=== PATIENT | male | born 1990 | race Two or more races ===

== ENCOUNTER 2025-03-13 19:59 | Emergency (ER) | payer OTHER ==
[~2025-03-13] VITALS: Ht 185.4 cm; Wt 90.7 kg
[2025-03-13] MEDS ORDERED: ASPIRIN 325 MG TABLET.EC PO ONE (21:25)
[2025-03-13 21:30] LABS: BASO % 0.4 % (0.1-1.2); EOS # 0.23 (0.04-0.54); EOS % 2.9 % (0.7-7.0); LYMPH # 2.14 (1.18-3.74); LYMPH % 26.5 % (19.3-53.1); MEAN PLATELET VOLUME 9.90 fl (9.4-12.4); MONO # 0.71 (0.24-0.82); MONO % 8.8 % (4.7-12.5); NEUT # 4.94 (1.56-6.13); NEUT % 61.2 % (34.0-71.1); RED CELL DISTRIBUTION WIDTH 11.7 % (11.6-14.4)
[2025-03-13] MEDS ORDERED: 0.9 % SODIUM CHLORIDE 1,000 ML IV SCH (21:30)
[2025-03-13] MEDS ORDERED: ATORVASTATIN CALCIUM 40 MG TABLET PO ONE (21:30)
[2025-03-13] MEDS ORDERED: ASPIRIN 325 MG TABLET PO ONE (21:30)
[2025-03-13 22:37] LABS: ALT/SGPT 37.0 U/L (12-78); AST/SGOT 21.0 U/L (15-37); BILIRUBIN TOTAL 0.52 mg/dL (0.3-1.2); BUN CREA RATIO 22.0 (7.0-25.0); CREATININE SERUM 1.09 mg/dL (0.70-1.30); GFR 77.44; GLOBULINA 2.9 G/DL (2.4-3.5); GLUCOSE FASTING 84.0 mg/dL (65-100); OSMOLALITY SERUM 286.0 MOSM/KG (275-295)
[2025-03-13 22:42] LABS: INR 1.0
== END 2025-03-14 06:32 | disposition home or self-care (01) ==
LOC: ER 19:59
PROVIDERS: General Practice
DX: M94.0 Chondrocostal junction syndrome [Tietze] (principal); R07.89 Other chest pain; R42 Dizziness and giddiness; I10 Essential (primary) hypertension